=== PATIENT | male | born 1970 | race Caucasian/White ===

== ENCOUNTER 2016-08-10 19:07 | Emergency (ER) | payer OTHER ==
--- NOTE | ~2016-08-10 | ER ---
PATIENT'S NAME: ADRI HARRIS [facility] AGE: 46 Y [address] ROOM: [place] [id number] LOCATION: [facility] ADMIT DATE: 08/10/2016 ER/Outpatient Report DISCHARGE DATE: 08/10/2016 FAMILY PHYSICIAN: PHYSICIAN, NO ATTENDING PHYSICIAN: Tonja Daly Time of Arrival: 1907 hours. Time of Evaluation: 1915 hours. CHIEF COMPLAINT: Right flank pain. HISTORY OF PRESENT ILLNESS: This is a 46-year-old male who presents to the ER. He states he has developed some right flank pain approximately 24 hours prior to arrival. He states that his pain comes and goes in nature and radiates from his right flank around to the front of his abdomen. He states he has had similar pain to this before when he had his kidney stones. He has had nausea, no vomiting, no troubles with bowel movements, no troubles with urination. Since last night when he was having a severe episode of his pain, he developed some jaw pain. This jaw pain radiated down to his neck and across his chest that lasted approximately 3-4 minutes in length. That also made him feel nauseated, but he had no diaphoresis. He did not really particularly feel any chest pain or heart palpitations and it has not returned since. He denies any other problems at this time. ALLERGIES: CT DYE. MEDICATIONS: Celebrex. PAST MEDICAL HISTORY: History of kidney stones with lithotripsy. SOCIAL HISTORY: He does chew tobacco. Denies any drugs or alcohol use. ROS: A 10-point review of systems was completed and was negative with the exception of those discussed in the HPI. PHYSICAL EXAMINATION: VITAL SIGNS: Height 5 feet 7 inches stated, weight 98.9 kg taken, blood pressure is , pulse 76, respirations 16, temperature 100.2 degrees PATIENT'S NAME: ADRI HARRIS [facility] AGE: 46 Y [address] ROOM: [place] [id number] LOCATION: [facility] ADMIT DATE: 08/10/2016 ER/Outpatient Report DISCHARGE DATE: 08/10/2016 FAMILY PHYSICIAN: PHYSICIAN, NO ATTENDING PHYSICIAN: Tonja Daly with a temporal scanner, saturations 94% on room air. [place] Coma Score is 15. GENERAL: Alert, calm, well-developed male, in mild distress. HEENT: Head: Normocephalic. Eyes: Pupils are equal and reactive to light. Does display moist mucous membranes. LUNGS: Clear to auscultation bilaterally. No wheezes or crackles. Normal respiratory effort. HEART: Regular rate and rhythm. No lifts, thrills, or murmurs. EXTREMITIES: No clubbing or cyanosis. He has full range of motion of all limbs. ABDOMEN: Soft, it is nontender. He has good bowel sounds throughout. No masses were palpated. LABORATORY DATA: CBC: White count is 9.7, hemoglobin is 15.6, platelets 244. ANC is 7.0. CMS: Glucose is 115, calcium is 7.8, creatinine is 1.6, otherwise unremarkable. CPK is 163. CK-MB is 1.3. Troponin I is less than 0.040. PTT is 29, INR is 0.95. Urinalysis had a trace of blood. No infection. CT scan was done per stone protocol and does show a 5 x 4 mm renal calculi causing moderate hydronephrosis. He also has multiple small lesions of the liver. These lesions are unchanged from his prior imaging. EKG shows sinus rhythm with sinus arrhythmia. IMPRESSION: 1. A 5 x 4 mm right-sided renal calculi. 2. Episode of chest pain last evening, has since resolved. ASSESSMENT AND PLAN: I did start an IV here in the emergency room. Did give him some IV fluids along with 2 mg of morphine and 30 mg of Toradol. He did tolerate this well and this took his pain away. The patient would like to try this at home. So, we did notify Dr. Arteaga, urologist, of the patient. We will dismiss him to home with prescriptions for [place], Zofran, and Flomax to use as directed. He needs to strain his urine, continue to push fluids, and follow up with Urology on Friday. The patient understands and agrees with care. NARGIS BURR PA-C FOR MD IFEANYI TRENT/ernestine /[id number] d: 08/11/16 0211 t: 08/19/16 1838, OUTPATIENT REPORT
[2016-08-10 19:51] LABS: BILIRUBIN URINE NEGATIVE (NEGATIVE); BLOOD URINE 25 /UL (NEGATIVE); GLUCOSE URINE NEGATIVE (NEGATIVE); KETONE URINE NEGATIVE (NEGATIVE); LEUKOCYTES URINE NEGATIVE /UL (NEGATIVE); NITRITE URINE NEGATIVE (NEGATIVE); PROTEIN URINE NEGATIVE (NEGATIVE); UROBILINOGEN URINE NORMAL (NORMAL)
[2016-08-10 19:51] LABS: BASOPHIL % 0.2 %; EOSINOPHIL # 0.1 K/uL (0.0-0.5); EOSINOPHIL % 1.4 %; HEMATOCRIT 43.8 % (37.0-53.0); HEMOGLOBIN 15.6 g/dL (12.0-17.0); IMMATURE GRANULOCYTE % 0.2 %; LYMPHOCYTE # 1.8 K/uL (0.8-4.0); MCHC 35.6 gm/dL (32.0-36.5); MCV 87.1 fl (83.0-98.0); MONOCYTE # 0.8 K/uL (0.0-1.0); MONOCYTE % 8.4 %; MPV 10.1 fl (9.4-12.4); NEUTROPHIL % 71.8 %; NRBC % 0 /100WBC (0-0.00); PLATELET COUNT 244 K/uL (150-450); RBC 5.03 M/uL (4.00-6.00); RDW-CV 11.9 % (11.9-14.6); WBC 9.7 K/uL (4.0-11.0)
[2016-08-10 19:52] LABS: COLOR URINE YELLOW (YELLOW); TURBIDITY URINE CLEAR (CLEAR)
[2016-08-10 20:01] LABS: WBC URINE RARE #/HPF (NEGATIVE)
[2016-08-10 20:02] LABS: BACTERIA URINE NEGATIVE (NEGATIVE); EPITHELIAL URINE NEGATIVE #/HPF (NEGATIVE)
[2016-08-10 20:05] LABS: INR - (THERAPEUTIC) 0.95 (0.92-1.07)
[2016-08-10 20:07] LABS: ANION GAP 11.7 (10.0-19.0); CALCIUM 7.8 mg/dL (8.5-10.5); CREATININE 1.6 mg/dL (0.6-1.3); POTASSIUM 3.7 mMol/L (3.7-5.1); TOTAL BILIRUBIN 0.7 mg/dL (0.0-1.5); TOTAL PROTEIN 7.5 g/dL (6.0-8.4)
[2016-08-10 20:14] LABS: CPK 163 IU/L (35-332)
== END 2016-08-10 22:10 | disposition disaster alternative care site (69) ==
LOC: GMED 19:07
PROVIDERS: Family Medicine
DX: N13.2 Hydronephrosis with renal and ureteral calculous obstruction (principal); R07.9 Chest pain, unspecified; F17.220 Nicotine dependence, chewing tobacco, uncomplicated
CPT/HCPCS: J1885; J2270; J7030